=== PATIENT | male | born 1970 | race Two or more races ===

== ENCOUNTER 2020-07-06 12:39 | Inpatient (IN) | payer SELFPAY ==
[~2020-07-06] VITALS: Ht 172.7 cm; Wt 79.4 kg
[2020-07-06 12:41] VITALS: BP 142/100
--- NOTE | 2020-07-06 13:00 | Emergency Room Report ---
History of Present Illness General Chief Complaint: Alcohol Intoxication Present Illness HPI 49-year-old male presents to the emergency department brought by ambulance for altered level of consciousness. Per EMS patient has history of EtOH abuse and frequent EMS rounds however patient does not have any medical history here at this hospital. Patient is unable to answer questions he does respond to some painful and loud stimuli however has incomprehensible sentences. Patient has slurred speech. Pinpoint pupils. Appears patient has urinated on himself. No obvious signs of trauma no open wounds or bleeding no abrasions or bruises. HPI and ROS are limited due to patient current altered mental status. No oral trauma. Allergies: Coded Allergies: UNABLE TO ASSESS (Unverified , 07/06/20) COVID-19 Screening Contact w/high risk pt: No Experienced COVID-19 symptoms?: No COVID-19 Testing performed LAND DEPARTMENT HEAD: No Review of Systems All Other Systems: limited Physical Exam Vital Signs Date Time Temp Pulse Resp B/P (MAP) Pulse Ox O2 Delivery O2 Flow Rate FiO2 07/06/20 12:34 98.8 111 19 142/100 (114) 98 Room Air Sp02 EP Interpretation: reviewed, normal General Appearance: no apparent distress, alert, GCS 15, non-toxic Head: normocephalic, atraumatic - no oral trauma Eyes: bilateral eye normal inspection, bilateral eye PERRL, bilateral eye other - PINPOINT PUPILS ENT: hearing grossly normal, normal voice Neck: full range of motion, no bony tend Respiratory: lungs clear, normal breath sounds, no respiratory distress, no accessory muscle use, no wheezing, speaking full sentences Cardiovascular #1: regular rate, rhythm, no edema, normal capillary refill Gastrointestinal: normal bowel sounds, non tender, soft, other - no bruises. mild distention Musculoskeletal: back normal, non-tender Neurologic: alert, motor strength/tone normal, sensory intact, responsive - to painful and loud stimuli, no focal defects Psychiatric: judgement/insight normal Skin: no rash, normal color, other - no bruises, abrasions or lacerations Medical Decision Making PA Attestation Dr. Bernstein is my supervising Physician whom patient management has been discussed with. Diagnostic Impression: Primary Impression: Acute alcoholic intoxication Qualified Codes: F10.929 - Alcohol use, unspecified with intoxication, unspecified Additional Impression: Encephalopathy ER Course 49-year-old male presents to the emergency department brought by ambulance for altered level of consciousness. Per EMS patient has history of EtOH abuse and frequent EMS rounds however patient does not have any medical history here at this hospital. Patient is unable to answer questions he does respond to some painful and loud stimuli however has incomprehensible sentences. Patient has slurred speech. Pinpoint pupils. Appears patient has urinated on himself. No obvious signs of trauma no open wounds or bleeding no abrasions or bruises. HPI and ROS are limited due to patient current altered mental status. No oral trauma. Ddx considered but are not limited to ETOH, Trauma, Syncope, dementia, OD Vital signs: are WNL, pt. is afebrile H&PE are most consistent with ETOH abuse. ORDERS: -CBC: WNL -CMP: normal glucose, mild anion gap of 16, Na was 144. Cr of 1.4 normal BUN - Serum OsM: 397 - Serum ETOH: 405 - Tylenol and ASA: WNL -Ammonia: 29 WNL - UDS: Negative - total CK: mildly elevated 430 - CT Head no contrast: Unremarkable -CT C-spine No Contrast: WNL - COVID : NEGATIVE Corrected Osmolality : WNL 386-405 +/- 14 ED INTERVENTIONS: -1 Liter NS - Thiamine IV DISPOSITION: at this time pt. will be admitted to Dr. Costa for Alcohol intoxication, encephalopathy, and possible seizure due to incontinence and elevated Ck. Dr. Costa agreed to admit the pt. and to continue pt. care management. Labs Test 07/06/20 13:00 07/06/20 13:32 07/06/20 13:52 White Blood Count 5.4 K/UL (4.8-10.8) Red Blood Count 4.20 M/UL (4.70-6.10) Hemoglobin 11.8 G/DL (14.2-18.0) Hematocrit 35.8 % (42.0-52.0) Mean Corpuscular Volume 85 FL (80-99) Mean Corpuscular Hemoglobin 28.2 PG (27.0-31.0) Mean Corpuscular Hemoglobin Concent 33.0 G/DL (32.0-36.0) Red Cell Distribution Width 13.9 % (11.6-14.8) Platelet Count 195 K/UL (150-450) Mean Platelet Volume 7.0 FL (6.5-10.1) Neutrophils (%) (Auto) % (45.0-75.0) Lymphocytes (%) (Auto) % (20.0-45.0) Monocytes (%) (Auto) % (1.0-10.0) Eosinophils (%) (Auto) % (0.0-3.0) Basophils (%) (Auto) % (0.0-2.0) Differential Total Cells Counted 100 Neutrophils % (Manual) 72 % (45-75) Lymphocytes % (Manual) 23 % (20-45) Monocytes % (Manual) 5 % (1-10) Eosinophils % (Manual) 0 % (0-3) Basophils % (Manual) 0 % (0-2) Band Neutrophils 0 % (0-8) Platelet Estimate Adequate Platelet Morphology Normal Hypochromasia 1+ Prothrombin Time 10.7 SEC (9.30-11.50) Prothromb Time International Ratio 1.0 (0.9-1.1) Sodium Level 144 MMOL/L (136-145) Potassium Level 3.1 MMOL/L (3.5-5.1) Chloride Level 105 MMOL/L (98-107) Carbon Dioxide Level 24 MMOL/L (21-32) Anion Gap 16 mmol/L (5-15) Blood Urea Nitrogen 13 mg/dL (7-18) Creatinine 1.4 MG/DL (0.55-1.30) Estimat Glomerular Filtration Rate 53.6 mL/min (>60) Glucose Level 100 MG/DL (74-106) Osmolality 397 mOsm/kg (297-317) Calcium Level 7.8 MG/DL (8.5-10.1) Magnesium Level 2.5 MG/DL (1.8-2.4) Total Bilirubin 0.7 MG/DL (0.2-1.0) Aspartate Amino Transf (AST/SGOT) 42 U/L (15-37) Alanine Aminotransferase (ALT/SGPT) 35 U/L (12-78) Alkaline Phosphatase 116 U/L (46-116) Total Creatine Kinase 430 U/L (26-308) Troponin I 0.004 ng/mL (0.000-0.056) Total Protein 6.9 G/DL (6.4-8.2) Albumin 3.6 G/DL (3.4-5.0) Globulin 3.3 g/dL Albumin/Globulin Ratio 1.1 (1.0-2.7) Thyroid Stimulating Hormone (TSH) 0.857 uiU/mL (0.358-3.740) Salicylates Level 0.5 ug/mL (2.8-20) Acetaminophen Level < 2 MCG/ML (10-30) Serum Alcohol 405 mg/dL Ammonia 29 umol/L (11-32) Urine Osmolality 179 mOsm/kg (429-449) Urine Opiates Screen Negative (NEGATIVE) Urine Barbiturates Screen Negative (NEGATIVE) Phencyclidine (PCP) Screen Negative (NEGATIVE) Urine Amphetamines Screen Negative (NEGATIVE) Urine Benzodiazepines Screen Negative (NEGATIVE) Urine Cocaine Screen Negative (NEGATIVE) Urine Marijuana (THC) Screen Negative (NEGATIVE) EKG Diagnostic Results EP Interpretation: Dr. Bernstein Rate: normal - 94 Rhythm: NSR Other Impression Prolonged QT interval ASA given to the pt in ED: No PA Scribe Text This Interpretation was scribed by KARLIE Andersen. 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 --Per official radiology report- Please see report for specific details. CT/MRI/US Diagnostic Results #2: Imaging Test Ordered: CT C-Spine no Contrast Impression " Impression: No acute bony trauma Degenerative changes, as described". --Per official radiology report- Please see report for specific details. Last Vital Signs Date Time Temp Pulse Resp B/P (MAP) Pulse Ox O2 Delivery O2 Flow Rate FiO2 07/06/20 12:41 98.8 111 19 142/100 98 Room Air Status: unchanged Disposition: ADMITTED INPATIENT Condition: Serious Scripts Unable to Obtain Active Prescriptions or Reported Meds Linda Andersen Jul 06, 2020 13:00
[2020-07-06] MEDS ORDERED: levETIRAcetam 1,000mg/NS100ml 100 ML IVPB ONE (13:15)
[2020-07-06 13:24] LABS: HEMATOCRIT 35.8 % (42.0-52.0); HEMOGLOBIN 11.8 G/DL (14.2-18.0); MEAN CORPUSCULAR VOLUME 85 FL (80-99); PLATELET COUNT 195 K/UL (150-450); RED CELL DISTRIBUTION WIDTH 13.9 % (11.6-14.8); WHITE BLOOD COUNT 5.4 K/UL (4.8-10.8)
[2020-07-06 13:38] LABS: ANION GAP 16 mmol/L (5-15); BLOOD UREA NITROGEN 13 mg/dL (7-18); CALCIUM 7.8 MG/DL (8.5-10.1); CARBON DIOXIDE 24 MMOL/L (21-32); CHLORIDE 105 MMOL/L (98-107); CREATININE 1.4 MG/DL (0.55-1.30); POTASSIUM 3.1 MMOL/L (3.5-5.1); SODIUM 144 MMOL/L (136-145)
[2020-07-06 13:45] LABS: ALANINE AMINOTRANSFERASE 35 U/L (12-78); ALBUMIN 3.6 G/DL (3.4-5.0); ALBUMIN/GLOBULIN RATIO 1.1 (1.0-2.7); ALKALINE PHOSPHATASE 116 U/L (46-116); ASPARTATE AMINO TRANSFERASE 42 U/L (15-37); BILIRUBIN,TOTAL 0.7 MG/DL (0.2-1.0)
[2020-07-06 13:54] LABS: CREATINE KINASE 430 U/L (26-308)
--- NOTE | 2020-07-06 14:18 | Diagnostic Imaging Report ---
Indications: Altered level of consciousness Technique: Spiral acquisitions obtained through the brain. Angled axial and coronal 5 x 5 mm slices were reconstructed. Total dose length product 1100 mGycm. CTDI vol(s) 53 mGy. Dose reduction achieved using automated exposure control Comparison: None. Findings: No acute intracranial hemorrhage or edema. No mass effect nor midline shift. A calcification is seen in the right parasagittal high parietal lobe. Mildly prominent, for age, ventricles and extra-axial CSF spaces. There is periventricular deep white matter low-attenuation, consistent with chronic microvascular ischemic change. Otherwise normal wilson-white differentiation. Intact calvarium. Possible tiny ossified meningioma seen just to the left of the sagittal sinus. Visualized orbits and sinuses are unremarkable. 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
--- NOTE | 2020-07-06 14:24 | Diagnostic Imaging Report ---
Indication: Neck trauma, history of fall Technique: Spiral acquisitions obtained through the cervical spine. No IV contrast utilized. Multiplanar reconstructions were generated. Total dose length product 404 mGycm. CTDIvol(s) 20 mGy. Dose reduction achieved using automated exposure control. Comparison: none Findings: There is very slight anterior offset of C2 on C3, C3 on C4, C4 on C5. Bony alignment is otherwise normal. Vertebral body heights are preserved. No acute fractures. No dislocations. Vertebral body heights are preserved. 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 There is mild degenerative disc narrowing at C4-5. There is moderate narrowing of the right C4-5 neural foramen. There is bilateral facet arthrosis. No significant disc bulge or protrusion or spinal stenosis. At C5-6, there is moderate bilateral neural foraminal stenosis. There is bilateral facet arthrosis. No significant disc bulge or protrusion or spinal stenosis. There is moderate degenerative disc narrowing. At C6-7, there is moderate to severe degenerative disc narrowing. There is severe left and moderate to severe right neural foraminal stenosis. No significant disc bulge or protrusion or spinal stenosis. At the remaining disc levels, no significant disc bulge or protrusion, spinal stenosis, or neural foraminal narrowing. The included extra spinal soft tissues are unremarkable. Impression: No acute bony trauma Degenerative changes, as described The CT scanner at [facility] is accredited by the [employer] and the scans are performed using protocols designed to limit radiation exposure to as low as reasonably achievable to attain images of sufficient resolution adequate for diagnostic evaluation.
[2020-07-06 16:55] VITALS: BP 128/74
[2020-07-06] MEDS ORDERED: Thiamine HCl 100 MG in D5W 55 ML IVPB ONE (17:45)
[2020-07-06 18:01] VITALS: BP 140/69
[2020-07-06] MEDS ORDERED: Acetaminophen 500mg (ES) tab ORAL PRN (18:30)
[2020-07-06] MEDS ORDERED: Pantoprazole Inj IVP SCH (21:00)
[2020-07-06] MEDS ORDERED: Thiamine HCl 100 MG in D5W 55 ML IVPB SCH (21:00)
[2020-07-06] MEDS ORDERED: D5 1/2NS w/KCl 40meq 1000ml 1,000 ML IV SCH (21:00)
--- NOTE | 2020-07-07 22:45 | History and Physical Report ---
DATE OF ADMISSION: 07/06/2020 Please let this serve as an H and P because patient left against medical advice before I could see the patient, so I could not dictate H and P. Again, patient left couple hours after admission, did not want wait to be seen by doctors, and left against medical advice, so we cannot obviously do an H and P since patient left before we could examine the patient. Patient left shortly after admission. Again patient left AMA, against medical advice. Let this serve as H and P. Nirali Clark M.D. DR: ELVIRA JOB#: [id number] CC:
--- NOTE | 2020-07-08 11:11 | Discharge Summary ---
Discharge Summary Discharge Summary _ DATE OF ADMISSION: 07/06/2020 DATE OF DISCHARGE: 07/06/2020 Patient left AGAINST MEDICAL ADVICE REASON FOR ADMISSION: 49 years old male was brought to ED by paramedics due to altered mental status. Per sweatband perforator patient had a history of ETOH abuse and frequent sweatband perforator rounds. Upon evaluation patient was not able to answer question , but responded to painful and loud stimuli. Speech was slurred . Patient was found to have prior episode of urinary incontinence . No obvious sign of trauma, no open wounds, no bleeding ,no abrasion. Upon evaluation patient was tachycardic with heart rate 111 , blood pressure was 142/100 , pulse oximetry was stable on room air. Laboratory work-up revealed no leukocytosis, hemoglobin 11.8 ,hematocrit 35.8 , stable platelet count. Urine toxicology screen was negative. Serum alcohol level 405. Chemistry revealed potassium 3.1 BUN 13, creatinine 1.4. Magnesium 2.5. AST 42, ALT 35 s, table alkaline phosphatase. Ammonia 29. Troponin negative . TSH within normal limits. Serum osmolality 397 , urine osmolality 179 Rapid COVID-19 was negative. In emergency department patient received 1 L of normal saline, IV thiamine , IV Keppra , and admitted for further management Patient admitted with encephalopathy , acute alcoholic intoxication and possible seizures HOSPITAL COURSE: Patient admitted to medical surgical floor . Patient continued on the IV hydration with IV thiamine. Patient started on Protonix IV. Patient became more awake after few hours and decided to leave against medical advise. Vital signs were stable. The risks and consequences of signing AGAINST MEDICAL ADVICE were discussed with patient in detail. Patient verbalized understanding, nevertheless signed AMA form and left. FINAL DIAGNOSES: Acute toxic encephalopathy due to ETOH abuse Alcohol intoxication Episode of urinary incontinence, possible seizure I have been assigned to dictate discharge summary for this account. I was not involved in the patient's management. Rohini Ornelas NP Jul 08, 2020 11:11
== END 2020-07-06 21:00 | disposition left against medical advice (07) | DRG 894 ==
LOC: EDBD 12:39 → EMR 13:00 → 4E 14:14 → EDBEDREQSVC 15:04 → EDBEDREQ 15:04
DX: F10.129 Alcohol abuse with intoxication, unspecified (principal); G93.40 Encephalopathy, unspecified; R56.9 Unspecified convulsions; R32 Unspecified urinary incontinence
CPT/HCPCS: 36415; 70450; 72125; 80053; 80307; 82140; 82550; 83735; 83930; 83935; 84443; 84484; 85007; 85025; 85610; 96361; 96374; 99285; G0480; J7030; U0002